=== PATIENT | male | born 1995 | race Caucasian/White ===

== ENCOUNTER 2016-10-30 15:11 | Emergency (ER) | payer BC ==
[2016-10-30 15:16] VITALS: BP 127/60; PULSE 101; RESP 16; TEMP 97.7; O2SAT 98
[2016-10-30] MEDS ORDERED: OXYCODONE/APAP 5/325 TAB PO ONE (15:27)
[2016-10-30] MEDS ORDERED: IBUPROFEN 600 MG TAB PO ONE (15:27)
--- NOTE | 2016-10-30 15:47 | EDPHY ---
H & P Time Seen by Provider: 10/30/16 15:27 HPI/ROS: CHIEF COMPLAINT: Left shoulder dislocation HISTORY OF PRESENT ILLNESS: 21-year-old male presents to the emergency department with left shoulder dislocation. The patient was wrestling with a friend just prior to arrival and somehow dislocated his left shoulder. He is right-hand dominant. Denies any other trauma or injury. It happened just prior to arrival. Denies hitting his head or losing consciousness. Denies numbness or tingling in his fingers. ROS: Denies numbness or tingling in his fingers, pain in his left elbow or wrist. Denies symptoms in the right upper extremity. Denies hitting his head. Past Medical/Surgical History: Negative Social History: Visiting from [place] Smoking Status: Never smoked Physical Exam: On examination the patient is tearful. There is obvious deformity noted to the left shoulder. Clinically I think he has an anterior left shoulder dislocation. Full range of motion of the left elbow and left wrist. No abrasions or puncture wounds. Normal sensation to light touch with normal 2 point discrimination. Strong radial pulse at the left wrist. Constitutional: Initial Vital Signs Temperature (C) 36.5 C 10/30/16 15:13 Heart Rate 101 H 10/30/16 15:13 Respiratory Rate 16 10/30/16 15:13 Blood Pressure 127/60 H 10/30/16 15:13 O2 Sat (%) 98 10/30/16 15:13 Allergies/Adverse Reactions: No Known Allergies Allergy (Unverified 10/30/16 15:16) MDM/Departure - MDM Imaging Results: Imaging Impressions Shoulder X-Ray 10/30/16 15:27 Impression: Successful reduction. Suspect small Hill-Sachs deformity. Procedures: After consent was obtained from the patient, the patient was sitting upright with left hand adjusted firmly on top of my left shoulder. After gentle manipulation and massage, the shoulder was easily relocated. The patient tolerated this quite well. Post reduction x-rays reveal no fractures and good placement. He was placed in a sling and examined post application in good placement with normal CREEL HAND. Medications Given: Discontinued Medications Ibuprofen (Motrin) 600 mg PO EDNOW ONE Stop: 10/30/16 15:28 Last Admin: 10/30/16 15:36 Dose: 600 mg Oxycodone/Acetaminophen (Percocet 5/325) 1 tab PO EDNOW ONE Stop: 10/30/16 15:28 Last Admin: 10/30/16 15:36 Dose: 1 tab ED Course/Re-evaluation: 21-year-old male presents to the emergency department with left shoulder dislocation. The shoulder was easily reduced, see procedure note. Post reduction x-rays revealed no fractures. Shoulder was in normal placement. He was placed in a sling and given orthopedic referral. - Depart Disposition: Home, Routine, Self-Care Clinical Impression: Dislocation of left shoulder joint Qualifiers: Encounter type: initial encounter Qualified Code(s): S43.005A - Unspecified dislocation of left shoulder joint, initial encounter Condition: Good Instructions: Shoulder Dislocation (ED) Additional Instructions: Keep sling on until follow-up with orthopedic surgeon either in [place] or in [place] when you return home in 1 week. Ibuprofen 600 mg every 8 hours as needed for pain. Activity as tolerated. No lifting with your left arm until cleared by orthopedic surgeon. Referrals: Ervin Bowen MD [Medical Doctor] - 5-7 days, call for appt. (Orthopedic surgeon on-call)
== END 2016-10-30 16:01 | disposition home or self-care (01) ==
PROC: 0RSKXZZ Reposition Left Shoulder Joint, External Approach (ICD-10-PCS; principal; 2016-10-30)
DX: S43.005A Unspecified dislocation of left shoulder joint, initial encounter (principal); X58.XXXA Exposure to other specified factors, initial encounter; Y93.72 Activity, wrestling
CPT/HCPCS: A4565